=== PATIENT | female | born 1980 | race Caucasian/White ===

== ENCOUNTER 2017-07-16 11:21 | Emergency (ER) | payer BC ==
[2017-07-16] MEDS ORDERED: Ondansetron ODT TAB* 4 MG SL ONE (13:29)
[2017-07-16 13:37] LABS: ABS Basophils 0.1 10^3/ul (0-0.2); ABS Eosinophils 0.1 10^3/ul (0-0.6); ABS Lymphocytes 2.4 10^3/ul (1.0-4.8); ABS Monocytes 0.6 10^3/ul (0-0.8); ABS Neutrophils 5.3 10^3/ul (1.5-7.7); ABS Nucleated RBC 0 10^3/ul; Eosinophil % 1.1 % (0-6); Hematocrit 39 % (35-47); Hemoglobin 13.1 g/dl (12.0-16.0); Mean Corpuscular HGB Conc 34 g/dl (31-36); Mean Corpuscular Hemoglobin 30 pg (27-31); Mean Corpuscular Volume 87 fL (80-97); Mean Platelet Volume 7.3 um3 (7.4-10.4); Nucleated Red Blood Cells % 0.1; Platelet Count 316 10^3/ul (150-450); Red Blood Count 4.43 10^6/ul (4.0-5.4); Red Cell Distribution Width 14 % (10.5-15); White Blood Count 8.4 10^3/ul (3.5-10.8)
[2017-07-16 13:51] LABS: EGFR Non-African American 106.9 (>60)
[2017-07-16 15:03] VITALS: BP 121/79
--- NOTE | 2017-07-17 06:40 | ED ---
Throat Pain/Nasal Congestion - HPI Summary HPI Summary: Patient is a 36-year-old female presenting to the ED from [facility]. Recent states 2 days ago she felt pain to the occipital scalp which has now radiated anteriorly up over the ear and just posterior to the ear without effecting the jaw or cheek. She also endorses a warmth to the pinna of the ear without warmth to the mastoid. However, currently the majority of her pain is over the mastoid bone. She is concerned for a vestibular neuritis and hearing loss. She is not experiencing any hearing loss at this time. Denies any drainage from the ear. Immunizations are up today, however she has had chickenpox as a child. Denies any vesicles, lesions, rash or evidence of cellulitis. Denies any fevers, sweats, chills. She endorses feeling ill last week but this has since resolved. She does endorse a history of last year with bilateral ear infections. - History of Current Complaint Chief Complaint: EDGeneral Time Seen by Provider: 07/16/17 13:08 Hx Obtained From: Patient Onset/Duration: Sudden Onset Severity: Moderate Associated Signs And Symptoms: Positive: Negative - Epiglottits Risk Factors Epiglottis Risk Factors: Negative - Allergies/Home Medications Allergies/Adverse Reactions: Allergies Allergy/AdvReac Type Severity Reaction Status Date / Time No Known Allergies Allergy Verified 07/16/17 11:40 Home Medications: Home Medications Vit No.129/Iron/Folic [ One Daily] 1 tab PO DAILY 07/16/17 [ History Confirmed 07/16/17] PMH/Surg Hx/FS Hx/Imm Hx Previously Healthy: Yes Psychiatric History: Reports: Hx Depression Denies: Hx Anxiety, Hx Attention Deficit Hyperactivity Disorder, Hx Community Mental Health Tx, Hx Bipolar Disorder, Hx Suicide Attempt, Other Psychiatric Issues/Disorders - Surgical History Surgery Procedure, Year, and Place: PARATHYROID TUMOR REMOVAL - Immunization History Date of Tetanus Vaccine: unknown Hx Pertussis Vaccination: No Immunizations Up to Date: Unable to Obtain/Confirm Infectious Disease History: No Infectious Disease History: Denies: Traveled Outside the [place] in Last 30 Days - Social History Occupation: Employed Full-time Lives: With Family Alcohol Use: Occasionally Hx Substance Use: No Substance Use Type: Reports: None Hx Tobacco Use: No Smoking Status (MU): Never Smoked Tobacco Review of Systems Constitutional: Negative Negative: Fever, Chills, Fatigue Negative: Photophobia, Blurred Vision, Diplopia Positive: Other - pain to the mastoid area (L). Negative: Dental Pain, Sore Throat, Ear Ache, Nasal Discharge Negative: Palpitations, Chest Pain Genitourinary: Negative Positive: no symptoms reported, see HPI Negative: Arthralgia, Myalgia Neurological: Negative Psychological: Normal All Other Systems Reviewed And Are Negative: Yes Physical Exam Triage Information Reviewed: Yes Vital Signs On Initial Exam: Initial Vitals Temp Pulse Resp BP Pulse Ox 98.2 F 80 20 125/80 100 07/16/17 11:30 07/16/17 11:30 07/16/17 11:30 07/16/17 11:30 07/16/17 11:30 Vital Signs Reviewed: Yes Appearance: Positive: Well-Appearing, No Pain Distress, Well-Nourished Skin: Positive: Warm, Skin Color Reflects Adequate Perfusion Head/Face: Positive: Normal Head/Face Inspection, Scalp - scalp tenderness. Negative: TMJ Tenderness, Cephalohematoma Neck: Positive: Supple, No Lymphadenopathy, Enlarged Nodes @ - Left sided post auricular. No other LAD noted on exam Respiratory/Lung Sounds: Positive: Clear to Auscultation, Breath Sounds Present Cardiovascular: Positive: RRR, Pulses are Symmetrical in both Upper and Lower Extremities Neurological: Positive: Normal, Sensory/Motor Intact Psychiatric: Positive: Normal, Affect/Mood Appropriate AVPU Assessment: Alert Diagnostics - Vital Signs Vital Signs Temp Pulse Resp BP Pulse Ox 07/16/17 15:03 98.2 F 78 17 121/79 100 07/16/17 11:30 98.2 F 80 20 125/80 100 - Laboratory Lab Results: Lab Results 07/16/17 07/16/17 Range/Units 13:25 13:25 WBC 8.4 (3.5-10.8) 10^3/ul RBC 4.43 (4.0-5.4) 10^6/ul Hgb 13.1 (12.0-16.0) g/dl Hct 39 (35-47) % MCV 87 (80-97) fL MCH 30 (27-31) pg MCHC 34 (31-36) g/dl RDW 14 (10.5-15) % Plt Count 316 (150-450) 10^3/ul MPV 7.3 L (7.4-10.4) um3 Neut % (Auto) 63.1 (38-83) % Lymph % (Auto) 28.0 (25-47) % [place] % (Auto) 6.9 (0-7) % Eos % (Auto) 1.1 (0-6) % Baso % (Auto) 0.9 (0-2) % Absolute Neuts (auto) 5.3 (1.5-7.7) 10^3/ul Absolute Lymphs (auto) 2.4 (1.0-4.8) 10^3/ul Absolute Monos (auto) 0.6 (0-0.8) 10^3/ul Absolute Eos (auto) 0.1 (0-0.6) 10^3/ul Absolute Basos (auto) 0.1 (0-0.2) 10^3/ul Absolute Nucleated RBC 0 10^3/ul Nucleated RBC % 0.1 ESR 29 H (0-14) mm/Hr Sodium 138 L (139-145) mmol/L Potassium 4.0 (3.5-5.0) mmol/L Chloride 104 (101-111) mmol/L Carbon Dioxide 26 (22-32) mmol/L Anion Gap 8 (2-11) mmol/L BUN 8 (6-24) mg/dL Creatinine 0.63 (0.51-0.95) mg/dL Est GFR ( Amer) 137.5 (>60) Est GFR (Non-Af Amer) 106.9 (>60) BUN/Creatinine Ratio 12.7 (8-20) Glucose 88 (70-100) mg/dL Calcium 8.8 (8.6-10.3) mg/dL Total Bilirubin 0.30 (0.2-1.0) mg/dL AST 11 L (13-39) U/L ALT 17 (7-52) U/L Alkaline Phosphatase 83 (34-104) U/L C-Reactive Protein 5.96 H (< 5.00) mg/L Total Protein 6.9 (6.4-8.9) g/dL Albumin 3.9 (3.2-5.2) g/dL Globulin 3.0 (2-4) g/dL Albumin/Globulin Ratio 1.3 (1-3) Result Diagrams: 07/16/17 13:25 07/16/17 13:25 Lab Statement: Any lab studies that have been ordered have been reviewed, and results considered in the medical decision making process. EENT Course/Dx - Course Course Of Treatment: Patient sent here from [address] [place] [address] urgent care with a concern for mastoiditis. On physical examination, there is postauricular tenderness without erythema or swelling. There is no fluctuance or mass. No protrusion of the auricle. Denies any systemic involvement including no fevers, sweats, chills. Denies any lethargy. TM without erythema, otorrhea, pus pocket. Cone of light visualized. Enlarged left-sided postauricular lymph nodes. No right- sided postauricular lymph nodes appreciated. Denies any known tick bite or rash , no EM rash visualized to the scalp or neck. I have also discussed with the patient I am not at this time concerned with a labyrinthitis as she denies any vertigo symptoms, vomiting, hearing loss, tinnitus and there is no nystagmus on exam. She does however endorse a mild amount of nausea and she is given Zofran on arrival. The sternocleidomastoid muscle is palpated without pain. There is no vesicular lesions, however due to the nerve pattern of pain there is a concern for early shingles. History of chickenpox. Patient is currently breast -feeding and I believe a short course of steroid will help with any nerve discomfort. Will not place on any antibiotics or antivirals at this time. She understands return precautions and I have discussed mastoiditis symptoms as well as shingles symptoms. - Diagnoses Provider Diagnoses: Nerve pain, Postauricular lymphadenopathy Discharge - Sign-Out/Discharge Documenting (check all that apply): Discharge/Admit/Transfer - Discharge Plan Condition: Stable Disposition: HOME Prescriptions: predniSONE TAB* [Deltasone TAB*] 50 mg PO DAILY #5 tab MDD 1 Patient Education Materials: Mastoiditis (ED) Referrals: Saadia Yip MD [Primary Care Provider] - Additional Instructions: I am not diagnosing you with mastoiditis, I am giving you information You do not have signs of mastoiditis on exam Prednisone once daily 5 days Prednisone is at its peak in the body at 2 hours, attempt to avoid 2 hours after ingestion of prednisone BEFORE the medication or 4-5 hours AFTER is best However, no adverse reactions were seen in studies testing prednisone with breast feeding infants. Warm compresses to the postauricular nodes If you develop any vesicles, worsening redness, warmth, swelling, drainage from the ear or fevers, return to the ED immediately - Billing Disposition and Condition Condition: STABLE Disposition: HOME
== END 2017-07-16 15:03 | disposition home or self-care (01) ==
LOC: ED 11:21
DX: M79.2 Neuralgia and neuritis, unspecified (principal); R59.0 Localized enlarged lymph nodes; R11.0 Nausea; Z86.19 Personal history of other infectious and parasitic diseases
CPT/HCPCS: 36415; 80053; 85025; 85652; 86140; 99283; A9270-GY

== ENCOUNTER 2018-06-11 17:46 | Emergency (ER) | payer BC ==
[2018-06-11 19:22] LABS: ABS Basophils 0.1 10^3/ul (0-0.2); ABS Eosinophils 0.2 10^3/ul (0-0.6); ABS Lymphocytes 3.2 10^3/ul (1.0-4.8); ABS Monocytes 0.8 10^3/ul (0-0.8); ABS Neutrophils 8.2 10^3/ul (1.5-7.7); ABS Nucleated RBC 0 10^3/ul; Eosinophil % 1.6 %; Hematocrit 38 % (33-41); Hemoglobin 12.7 g/dL (12.0-16.0); Lymphocyte % 25.8 %; Mean Corpuscular HGB Conc 33 g/dL (31-36); Mean Corpuscular Hemoglobin 29 pg (27-31); Mean Corpuscular Volume 88 fL (80-97); Mean Platelet Volume 7.4 fL (7.4-10.4); Nucleated Red Blood Cells % 0; Platelet Count 302 10^3/uL (150-450); Red Blood Count 4.33 10^6 /uL (3.70-4.87); Red Cell Distribution Width 14 % (10.5-15); White Blood Count 12.6 10^3/uL (3.5-10.8)
[2018-06-11 19:43] LABS: ALT 17 U/L (7-52); AST 13 U/L (13-39); Albumin 4.3 g/dL (3.2-5.2); Albumin/Globulin Ratio 1.4 (1-3); Alkaline Phosphatase 83 U/L (34-104); Anion Gap 6 mmol/L (2-11); BUN/Creatinine Ratio 15.2 (8-20); Blood Urea Nitrogen 10 mg/dL (6-24); C Reactive Protein 11.21 mg/L (<8.01); CO2 Carbon Dioxide 27 mmol/L (22-32); Calcium 9.4 mg/dL (8.6-10.3); Chloride 106 mmol/L (101-111); EGFR African American 121.9 (>60); EGFR Non-African American 100.8 (>60); Glucose 98 mg/dL (70-100); Potassium 4.3 mmol/L (3.5-5.0); Sodium 139 mmol/L (135-145); Total Protein 7.3 g/dL (6.4-8.9)
[2018-06-11 19:49] LABS: HCG Pregnancy < 0.60 mIU/mL
[2018-06-11] MEDS ORDERED: NS 0.9% 1000 ML** 1,000 ML IV ONE (20:02)
[2018-06-11] MEDS ORDERED: Morphine 10 MG/ML VIAL (1 ml) IV ONE (20:02)
[2018-06-11] MEDS ORDERED: Ondansetron INJ* 2 MG/ML VIAL IV ONE (20:02)
--- NOTE | 2018-06-11 20:02 | ED ---
Abdominal Pain/Female - HPI Summary HPI Summary: Patient complains of pelvic pain involving anterior pelvis, bilateral hips, bilateral lower back starting in March 2018. She states symptoms are intermittent, increase with menstrual cycle and decreased when menstrual cycle is over. States this time patient is worse and started sooner. Denies fever, cough, sore throat, CP, SOB, N/V/D, change in urine, change in BM, vaginal bleeding, vaginal discharge. States PSYCH RN cannot get her an appointment until next week. Chronic intermittent pain with intercourse and chronic vaginal itching which has been evaluated by PSYCH RN with no formal diagnosis. Patient has history of kidney stones. - History of Current Complaint Chief Complaint: EDAbdPain Stated Complaint: PELVIC PAIN, SENT FROM [facility] PER PT Time Seen by Provider: 06/11/18 18:46 Hx Obtained From: Patient Onset/Duration: Gradual Onset, Lasting Weeks Timing: Weeks Severity Initially: Moderate Severity Currently: Severe Pain Intensity: 8 Pain Scale Used: 0-10 Numeric Location: Diffuse Radiates: Yes Radiates to: Back, Flank, LLQ, RLQ Character: Sharp, Cramping Aggravating Factor(s): Movement Alleviating Factor(s): Position Associated Signs and Symptoms: Positive: Back Pain Allergies/Adverse Reactions: Allergies Allergy/AdvReac Type Severity Reaction Status Date / Time No Known Allergies Allergy Verified 06/11/18 17:50 Home Medications: Home Medications Sertraline* [Zoloft*] 25 mg PO DAILY 06/11/18 [History Confirmed 06/11/18] PMH/Surg Hx/FS Hx/Imm Hx Endocrine/Hematology History: Denies: Hx Anticoagulant Therapy Cardiovascular History: Denies: Hx Pacemaker/ICD History: Denies: Hx Dialysis Sensory History: Denies: Hx Eye Prosthesis Opthamlomology History: Denies: Hx Legally Blind EENT History: Denies: Hx Deafness Neurological History: Denies: Hx Dementia Psychiatric History: Reports: Hx Depression Denies: Hx Anxiety, Hx Attention Deficit Hyperactivity Disorder, Hx Community Mental Health Tx, Hx Bipolar Disorder, Hx Suicide Attempt, Other Psychiatric Issues/Disorders - Surgical History Surgery Procedure, Year, and Place: PARATHYROID TUMOR REMOVAL - Immunization History Date of Tetanus Vaccine: unknown Infectious Disease History: No Infectious Disease History: Denies: Traveled Outside the [place] in Last 30 Days - Social History Alcohol Use: Occasionally Hx Substance Use: No Substance Use Type: Reports: None Hx Tobacco Use: No Smoking Status (MU): Never Smoked Tobacco Review of Systems Constitutional: Negative Eyes: Negative ENT: Negative Cardiovascular: Negative Respiratory: Negative Positive: Abdominal Pain Genitourinary: Negative Musculoskeletal: Negative Skin: Negative Neurological: Negative Psychological: Normal All Other Systems Reviewed And Are Negative: Yes Physical Exam - Summary Physical Exam Summary: Lower abdomen tender to palpation bilaterally and suprapubically. Upper abdomen exam unremarkable. No indication of trauma to bilateral hips. No pain with palpation of lower back. No CVA tenderness bilaterally. Patient able to flex and extend bilateral hips with minimal indication of pain. Lung sounds clear to auscultation bilaterally. RRR. Triage Information Reviewed: Yes Vital Signs On Initial Exam: Initial Vitals Temp Pulse Resp BP Pulse Ox 98.0 F 86 20 139/81 98 06/11/18 17:49 06/11/18 17:49 06/11/18 17:49 06/11/18 17:49 06/11/18 17:49 Vital Signs Reviewed: Yes Appearance: Positive: Well-Appearing Skin: Positive: Warm Head/Face: Positive: Normal Head/Face Inspection Eyes: Positive: Normal Neck: Positive: Supple Respiratory/Lung Sounds: Positive: Clear to Auscultation Cardiovascular: Positive: Normal Abdomen Description: Positive: Other: Musculoskeletal: Positive: Normal Neurological: Positive: Normal Psychiatric: Positive: Normal AVPU Assessment: Alert - Ervin Coma Scale Best Eye Response: 4 - Spontaneous Best Motor Response: 6 - Obeys Commands Best Verbal Response: 5 - Oriented Coma Scale Total: 15 Diagnostics - Vital Signs Vital Signs Temp Pulse Resp BP Pulse Ox 06/11/18 17:49 98.0 F 86 20 139/81 98 - Laboratory Lab Results: Lab Results 06/11/18 06/11/18 06/11/18 Range/Units 19:15 19:15 19:15 WBC 12.6 H (3.5-10.8) 10^3/uL RBC 4.33 (3.70-4.87) 10^6 /uL Hgb 12.7 (12.0-16.0) g/dL Hct 38 (33-41) % MCV 88 (80-97) fL MCH 29 (27-31) pg MCHC 33 (31-36) g/dL RDW 14 (10.5-15) % Plt Count 302 (150-450) 10^3/uL MPV 7.4 (7.4-10.4) fL Neut % (Auto) 65.1 % Lymph % (Auto) 25.8 % [place] % (Auto) 6.7 % Eos % (Auto) 1.6 % Baso % (Auto) 0.8 % Absolute Neuts (auto) 8.2 H (1.5-7.7) 10^3/ul Absolute Lymphs (auto) 3.2 (1.0-4.8) 10^3/ul Absolute Monos (auto) 0.8 (0-0.8) 10^3/ul Absolute Eos (auto) 0.2 (0-0.6) 10^3/ul Absolute Basos (auto) 0.1 (0-0.2) 10^3/ul Absolute Nucleated RBC 0 10^3/ul Nucleated RBC % 0 Sodium 139 (135-145) mmol/L Potassium 4.3 (3.5-5.0) mmol/L Chloride 106 (101-111) mmol/L Carbon Dioxide 27 (22-32) mmol/L Anion Gap 6 (2-11) mmol/L BUN 10 (6-24) mg/dL Creatinine 0.66 (0.51-0.95) mg/dL Est GFR ( Amer) 121.9 (>60) Est GFR (Non-Af Amer) 100.8 (>60) BUN/Creatinine Ratio 15.2 (8-20) Glucose 98 (70-100) mg/dL Lactic Acid 0.9 (0.5-2.0) mmol/L Calcium 9.4 (8.6-10.3) mg/dL Total Bilirubin 0.30 (0.2-1.0) mg/dL AST 13 (13-39) U/L ALT 17 (7-52) U/L Alkaline Phosphatase 83 (34-104) U/L C-Reactive Protein 11.21 H (<8.01) mg/L Total Protein 7.3 (6.4-8.9) g/dL Albumin 4.3 (3.2-5.2) g/dL Globulin 3.0 (2-4) g/dL Albumin/Globulin Ratio 1.4 (1-3) Lipase 29 (11.0-82.0) U/L Beta HCG, Quant < 0.60 mIU/mL Result Diagrams: 06/11/18 19:15 06/11/18 19:15 Lab Statement: Any lab studies that have been ordered have been reviewed, and results considered in the medical decision making process. Abdominal Pain Fem Course/Dx - Course Course Of Treatment: Patient complains of pelvic pain involving anterior pelvis , bilateral hips, bilateral lower back starting in March 2018. She states symptoms are intermittent, increase with menstrual cycle and decreased when menstrual cycle is over. States this time patient is worse and started sooner. Denies fever, cough, sore throat, CP, SOB, N/V/D, change in urine, change in BM, vaginal bleeding, vaginal discharge. States PSYCH RN cannot get her an appointment until next week. Chronic intermittent pain with intercourse and chronic vaginal itching which has been evaluated by PSYCH RN with no formal diagnosis. Patient has history of kidney stones. Physical exam:Lower abdomen tender to palpation bilaterally and suprapubically. Upper abdomen exam unremarkable. No indication of trauma to bilateral hips. No pain with palpation of lower back. No CVA tenderness bilaterally. Patient able to flex and extend bilateral hips with minimal indication of pain. Lung sounds clear to auscultation bilaterally. RRR. Vital signs within normal limits. WBC 12.6. CRP 11.21. Labs otherwise unremarkable. Urine negative. Pelvic/ transvaginal ultrasound unremarkable. CT abdomen and pelvis with contrast remarkable only for right ovarian cyst. Patient deferred pelvic exam at this time, has appointment with PSYCH RN next week, advised to take ibuprofen and Tylenol until then and follow-up appointment. Patient understands and approved the plan. - Diagnoses Provider Diagnoses: Ovarian cyst Discharge - Sign-Out/Discharge Documenting (check all that apply): Patient Departure Patient Received Moderate/Deep Sedation with Procedure: No - Discharge Plan Condition: Stable Disposition: HOME Prescriptions: Oxycodone HCl 5 mg PO Q8H PRN 2 Days #6 tablet MDD 3 tabs PRN Reason: Pain Patient Education Materials: Ovarian Cyst (ED) Referrals: Saadia Yip MD [Primary Care Provider] - Additional Instructions: Follow-up with your PSYCH RN at your scheduled appointment next week for further evaluation. You may alternate ibuprofen 600 mg with Tylenol 650 mg every 3 hours for pain. Return to the ED for any new or worsening symptoms. - Billing Disposition and Condition Condition: STABLE Disposition: Home
[2018-06-11] MEDS ORDERED: Iohexol 300* (CONTRAST) 10 ML SDV IV ONE (20:12)
[2018-06-11 20:39] LABS: Urine Appearance Clear; Urine Bacteria 1+ (Absent); Urine Bilirubin Negative (Negative); Urine Blood Negative (Negative); Urine Color Straw; Urine Glucose Negative (Negative); Urine Ketones Negative (Negative); Urine Nitrite Negative (Negative); Urine Protein Negative (Negative); Urine Red Blood Cell Trace(0-2/hpf) (Absent); Urine Specific Gravity 1.005 (1.010-1.030); Urine Squamous Epithelial Cell Present (Absent); Urine Urobilinogen Negative (Negative); Urine White Blood Cell Trace(0-5/hpf) (Absent)
[2018-06-11] MEDS ORDERED: diPHENhydraMINE IV* 50 MG/ML 1 ml VIAL (BENADRYL) IV ONE (20:45)
[2018-06-11] MEDS ORDERED: oxyCODONE TAB* 5 MG TAB PO ONE (21:11)
[2018-06-11] MEDS ORDERED: Ibuprofen TAB* 600 MG PO ONE (21:11)
[2018-06-11 21:47] VITALS: BP 121/86
--- NOTE | 2018-06-13 16:15 | PN ---
Progress Note - Progress Note Date of Service: 06/11/18 Note: Pt. seen in ED 4.29 for abd. pain. Urine culture growing 75-100k staph. aureus. Pt. not on antibx. Attempted to call pt. today at 1605 without answer. Will treat with keflex based on culture. Will send letter to return call. <Matthew Alves - Last Filed: 06/13/18 16:09> Attestation Statement Provider Attestation: I was available for consult. This patient was seen by the [facility]. The patient was not presented to, seen by, or examined by me. -Derick <Talia Ceron - Last Filed: 06/14/18 15:26>
== END 2018-06-11 21:46 | disposition home or self-care (01) ==
LOC: ED 17:46
DX: N83.201 Unspecified ovarian cyst, right side (principal); N39.0 Urinary tract infection, site not specified; B95.61 Methicillin susceptible Staphylococcus aureus infection as the cause of diseases classified elsewhere; Z87.442 Personal history of urinary calculi; F32.9 Major depressive disorder, single episode, unspecified
CPT/HCPCS: 36415; 74177; 76830; 76856; 80053; 81003; 81015; 83605; 83690; 84702; 85025; 86140; 87077; 87086; 87186; 96361; 96374; 96375; 99282; A9270-GY; J1200; J2270; J2405; Q9967

== ENCOUNTER 2019-04-17 15:41 | Emergency (ER) | payer BC ==
--- OUTSIDE RECORDS SUMMARY | 2019-04-17 16:02 | XMS REPORT | Summary of Care ---
:1980 Author Organization [facility] Address [address] [facility] [address] [place] [address] Care Team Providers Name Role Phone Casa Timmons Primary Care Provider Reason for Visit Reason Comments Anxiety Discuss labs 2 month follow up. Derm Problem Right arm lumps under her skin wants checked. Encounter Details Date Type Department Care Team Description 02/21/2019 Office Visit [facility] Saadia Yip MD Severe menstrual cramps (Primary Dx); Medicine [address] Depression, unspecified depression type; [address] [place] [address] B12 deficiency; [place] [address] Lipid disorder; [phone] Vitamin D deficiency; Lipoma, unspecified site Allergies No Known Allergiesdocumented as of this encounter (statuses as of 02/21/2019) Medications Medication Sig Dispensed Refills Start Date End Date Status acetaminophen Take 500 mg 0 Active (TYLENOL) 500 MG by mouth Oral Tab EVERY FOUR HOURS NEEDED for Pain. sertraline (ZOLOFT) Take 50 mg 0 Active 50 MG Oral Tab by mouth DAILY. 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 ondansetron (ZOFRAN Take 1 Tab 30 Tab 1 12/17/2018 Active ODT) 4 MG Oral by mouth TABLET EVERY SIX DISPERSIBLEIndicati HOURS ons: Severe NEEDED menstrual cramps (nausea -). naproxen sodium Take 1 Tab 60 Tab 5 02/21/2019 Active (ANAPROX DS) 550 MG by mouth TWO Oral TIMES DAILY TabIndications: WITH MEALS. Severe menstrual cramps ALPRAZolam (XANAX) Take 1 Tab 30 Tab 0 02/21/2019 Active 0.5 MG Oral by mouth TabIndications: EVERY SIX Severe menstrual HOURS cramps NEEDED (anxiety). Max Daily Amount: 2 mg. HYDROcodone-acetami Take 1 Tab 45 Tab 0 02/21/2019 Active nophen (NORCO) by mouth 5-325 MG Oral EVERY SIX TabIndications: HOURS Severe menstrual NEEDED cramps (menstrual cramps). Max Daily Amount: 4 Tabs. ibuprofen (MOTRIN) Take 600 mg 0 Discontinued 200 MG Oral Tab by mouth 0 EVERY FOUR HOURS NEEDED for Pain. naproxen sodium Take 1 Tab 60 Tab 0 12/17/2018 Discontinued (ANAPROX DS) 550 MG by mouth TWO 0 (Reorder) Oral Tab TIMES DAILY WITH MEALS. HYDROcodone-acetami Take 1 Tab 30 Tab 0 12/17/2018 Discontinued nophen (NORCO) by mouth 0 (Reorder) 5-325 MG Oral Tab EVERY SIX HOURS NEEDED (menstrual cramps). Max Daily Amount: 4 Tabs. ALPRAZolam (XANAX) Take 1 Tab 20 Tab 0 12/17/2018 Discontinued 0.5 MG Oral by mouth 0 (Reorder) TabIndications: EVERY SIX Severe menstrual HOURS cramps NEEDED (anxiety). Max Daily Amount: 2 mg. documented as of this encounter (statuses as of 02/21/2019) Active Problems Problem Noted Date Depression with anxiety 07/03/2014 Panic disorder 06/19/2014 Inflammatory osteoarthritis 09/26/2013 Fibromyalgia syndrome 04/18/2013 Overview: S/p chiropractor 2012 Blood work negative Parathyroid adenoma 03/28/2013 Overview: Parathyroidectomy [facility] 05/2012: FINAL DIAGNOSIS: RESECTION OF RIGHT SUPERIOR PARATHYROID GLAND: - PARATHYROID ADENOMA, 7 GRAMS. History of ADHD 03/28/2013 Overview: concerta use 2 years 2006- Urolithiasis 05/10/2012 Fatty liver 05/10/2012 BMI 32.0-32.9,adult 05/10/2012 Overview: This patient's BMI has been calculated and is above average, and BMI management plan is completed. General patient education discussion including: obesity- related excess mortality documented as of this encounter (statuses as of 02/21/2019) Resolved Problems Problem Noted Date Resolved Date Primary hyperparathyroidism 05/10/2012 06/13/2012 documented as of this encounter (statuses as of 02/21/2019) Immunizations Name Administration Dates Next Due Influenza (IM) W/Pres 01/07/2014 TDAP Vaccine 01/07/2014 documented as of this encounter Social History Tobacco Use Types Packs/Day Years Used Date Never Smoker Smokeless Tobacco: Never Used Alcohol Use Drinks/Week oz/Week Comments Yes 2 Glasses of wine 3.0 once a week 1 Cans of beer Sex Assigned at Date Recorded Not on file Job Start Date Occupation Industry Not on file Not on file Not on file Travel History Travel Start Travel End No recent travel history available. documented as of this encounter Last Filed Vital Signs Vital Sign Reading Time Taken Comments Blood Pressure 128/68 02/21/2019 9:12 AM EST Pulse 74 02/21/2019 9:12 AM EST Temperature - - Respiratory Rate - - Oxygen Saturation 98% 02/21/2019 9:12 AM EST Inhaled Oxygen Concentration - - Weight 90.3 kg (199 lb) 02/21/2019 9:12 AM EST Height 160 cm (5' 3") 02/21/2019 9:12 AM EST Body Mass Index 35.25 02/21/2019 9:12 AM EST documented in this encounter Progress Notes Saadia Yip MD - 02/21/2019 9:00 AM EST NAME:Ave Londono 1980: 1980 ENC Date: 02/21/2019 CC: Chief Complaint Patient presents with Anxiety Discuss labs 2 month follow up. Derm Problem Right arm lumps under her skin wants checked. Ave Londono is a 38-y.o. female 1. Severe menstural cramps - Well addressed by present multidrug regimen 2. Following with psychologist - Dr Singh Good experience - 3/ bump on right forearm Current Outpatient Medications Medication Sig acetaminophen (TYLENOL) 500 MG Oral Tab Take 500 mg by mouth EVERY FOUR HOURS NEEDED for Pain. ALPRAZolam (XANAX) 0.5 MG Oral Tab Take 1 Tab by mouth EVERY SIX HOURS NEEDED (anxiety). Max Daily Amount: 2 mg. HYDROcodone-acetaminophen (NORCO) 5-325 MG Oral Tab Take 1 Tab by mouth EVERY SIX HOURS NEEDED (menstrual cramps). Max Daily Amount: 4 Tabs. Multiple Vitamin (MULTI-DAY PO) Take by mouth. naproxen sodium (ANAPROX DS) 550 MG Oral Tab Take 1 Tab by mouth TWO TIMES DAILY WITH MEALS. ondansetron (ZOFRAN ODT) 4 MG Oral TABLET DISPERSIBLE Take 1 Tab by mouth EVERY SIX HOURS NEEDED (nausea -). sertraline (ZOLOFT) 50 MG Oral Tab Take 50 mg by mouth DAILY. 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 Patient Active Problem List Diagnosis Date Noted Depression with anxiety 07/03/2014 Panic disorder 06/19/2014 Inflammatory osteoarthritis 09/26/2013 Fibromyalgia syndrome 04/18/2013 S/p chiropractor 2011 Blood work negative Parathyroid adenoma 03/28/2013 Parathyroidectomy [facility] 05/2012: FINAL DIAGNOSIS: RESECTION OF RIGHT SUPERIOR PARATHYROID GLAND: - PARATHYROID ADENOMA, 7 GRAMS. History of ADHD 03/28/2013 concerta use 2 years 2006-8 Urolithiasis 05/10/2012 Fatty liver 05/10/2012 BMI 32.0-32.9,adult 05/10/2012 This patient's BMI has been calculated and is above average, and BMI management plan is completed. General patient education discussion including: obesity-related excess mortality Family History Problem Relation Age of Onset Fibromyalgia Mother Hypertension Father Hypertension Paternal Grandmother Cancer Maternal Grandfather prostate, skin Cancer Other ? pancreatic or stomach No cardiopulmonary symptoms No upper or lower GI complaints No urinary tract symptoms. No bruising/ bleeding. No neurological complaints . No insomnia.+ . Social History Tobacco Use Smoking status: Never Smoker Smokeless tobacco: Never Used Substance Use Topics Alcohol use: Yes Alcohol/week: 3.0 standard drinks Types: 2 Glasses of wine, 1 Cans of beer per week Comment: once a week Drug use: No OBJECTIVE: BP 128/68 | Pulse 74 | Ht 5' 3" (1.6 m) | Wt 199 lb (90.3 kg) | SpO2 98% | BMI 35.25 kg/m . Fatty lipoma - like - Larger than pea- smaller than grape - below elbow- A/P ICD-9-CM ICD-10-CM 1. Severe menstrual cramps 625.3 N94.6 naproxen sodium (ANAPROX DS) 550 MG Oral Tab ALPRAZolam (XANAX) 0.5 MG Oral Tab HYDROcodone-acetaminophen (NORCO) 5-325 MG Oral Tab 2. Depression, unspecified depression type 311 F32.9 CBC WITH DIFFERENTIAL COMPREHENSIVE METABOLIC PANEL THYROID STIMULATING HORMONE 3. B12 deficiency 266.2 E53.8 VITAMIN B12 / FOLATE 4. Lipid disorder 272.9 E78.9 LIPID PROFILE 5. Vitamin D deficiency 268.9 E55.9 VITAMIN D 25 HYDROXY ([place]ILTON) 6. Lipoma, unspecified site 214.9 D17.9 There are no Patient Instructions on file for this visit. AUTHOR: Saadia Yip MD 09:50 02/21/2019 documented in this encounter Plan of Treatment Date Type Specialty Care Team Description 02/26/2019 Office Visit Physical Therapy Yolanda Watson, PT [address] [place] [address] [phone] 03/05/2019 Office Visit Physical Therapy Yolanda Watson, PT [address] [place] [address] [phone] 03/12/2019 Office Visit Physical Therapy Yolanda Watson, PT [address] [place] [address] [phone] Name Type Priority Associated Diagnoses Order Schedule CBC WITH DIFFERENTIAL Lab Routine Depression, unspecified Expected: 2019 depression type (Approximate), Expires: 08/19/2019 COMPREHENSIVE METABOLIC Lab Routine Depression, unspecified Expected: 02/20 PANEL depression type (Approximate), Expires: 08/19/2019 THYROID STIMULATING Lab Routine Depression, unspecified Expected: 2019 HORMONE depression type (Approximate), Expires: 08/19/2019 LIPID PROFILE Lab Routine Lipid disorder Expected: 02/20/2019 (Approximate), Expires: 08/19/2019 VITAMIN B12 / FOLATE Lab Routine B12 deficiency Expected: 02/20/2019 (Approximate), Expires: 02/21/2020 VITAMIN D 25 HYDROXY Lab Routine Vitamin D deficiency Expected: 02/21/2019 (YOBANI) (Approximate), Expires: 02/22/2020 Health Maintenance Due Date Last Done Comments DEPRESSION SCREENING 12/18/2019 12/17/2018 DTaP/Tdap/Td Vaccines (2 - Tdap) 01/08/2024 01/07/2014 HEPATITIS A IMMUNIZATION SERIES Aged Out No longer eligible based on patient's age to complete this topic HPV IMMUNIZATION SERIES Aged Out No longer eligible based on patient's age to complete this topic MENINGOCOCCAL VACCINE IMM Aged Out No longer eligible based on patient's age to complete this topic PNEUMOCOCCAL 0-64 YRS Aged Out No longer eligible based on patient's age to complete this topic documented as of this encounter Goals Goal Patient Goal Associated Recent Patient-Stated? Author Type Problems Progress Depression Depression No chicho Yip (PHQ-9) MD Saadia total score < 5 Note: This is an individualized treatment (depression) goal for Ave Londono: Displayed above is your goal for a depression screening (PHQ-9) score that would indicate good control of your depression. Keep a regular sleep schedule Lifestyle No Saadia Yip MD Note: This is an individualized lifestyle goal for Ave Londono: Please maintain a regular sleep schedule. This may help with some symptoms of depression. Take all prescribed medications as directed Self-management No Saadia Yip MD Note: This is an individualized self-management goal for Ave Londono: Please take all prescribed medications as directed. 1. Do not skip doses. If you cannot afford your medications, talk with your doctor. 2. Use a pill reminder system such as a pill box if needed. Your pharmacist can help you with this. 3. Contact your Pharmacy 5 days before your medication runs out. If you cannot take your medications for any reasons, talk with your doctor. 4. Please bring all of your medication bottles and inhalers (or a list of all your medications/inhalers) with you to every visit. Potential barriers to meeting all of your care plan goals will continue to be addressed on an ongoing basis. documented as of this encounter Results Not on filedocumented in this encounter Visit Diagnoses Diagnosis Severe menstrual cramps Depression, unspecified depression type B12 deficiency Other B-complex deficiencies Lipid disorder Unspecified disorder of lipoid metabolism Vitamin D deficiency Unspecified vitamin D deficiency Lipoma, unspecified site documented in this encounter Insurance Payer Benefit Plan / Subscriber ID Effective Dates Phone Address Type Group [facility] xxxxxxxxx 2011-[place] Blue t Cross/Blue Shield Guarantor Name Account Type Relation to Date of Phone Billing Patient Address Ave Londono Personal/Family [address] (Home) [place], [place] [phone] (Work) documented as of this encounter
--- OUTSIDE RECORDS SUMMARY | 2019-04-17 16:02 | XMS REPORT | Summary of Care ---
:1980 Author Organization [facility] Address [address] [place] [address] Care Team Providers Name Role Phone Casa Timmons Primary Care Provider Reason for Visit Reason Comments Ankle Pain Encounter Details Date Type Department Care Team Description 02/19/2019 Office Visit [facility] - oYlanda Watson, PT Acute right ankle [facility] [address] pain (Primary Dx) Therapy [address] [place] [address] [address] [phone] [place] [address] [phone] Allergies No Known Allergiesdocumented as of this encounter (statuses as of 02/19/2019) Medications Medication Sig Dispensed Refills Start Date End Date Status ibuprofen (MOTRIN) 200 Take 600 mg by 0 Active MG Oral Tab mouth EVERY FOUR HOURS NEEDED for Pain. acetaminophen (TYLENOL) Take 500 mg by 0 Active 500 MG Oral Tab mouth EVERY FOUR HOURS NEEDED for Pain. sertraline (ZOLOFT) 50 Take 50 mg by 0 Active MG Oral Tab mouth DAILY. 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 0 Active (MULTI-DAY PO) naproxen sodium (ANAPROX Take 1 Tab by 60 Tab 0 12/17/2018 Active DS) 550 MG Oral Tab mouth TWO TIMES DAILY WITH MEALS. HYDROcodone-acetaminophe Take 1 Tab by 30 Tab 0 12/17/2018 Active n (NORCO) 5-325 MG Oral mouth EVERY SIX Tab HOURS NEEDED (menstrual cramps). Max Daily Amount: 4 Tabs. ondansetron (ZOFRAN ODT) Take 1 Tab by 30 Tab 1 12/17/2018 Active 4 MG Oral TABLET mouth EVERY SIX DISPERSIBLEIndications: HOURS NEEDED Severe menstrual cramps (nausea -). ALPRAZolam (XANAX) 0.5 Take 1 Tab by 20 Tab 0 12/17/2018 Active MG Oral TabIndications: mouth EVERY SIX Severe menstrual cramps HOURS NEEDED (anxiety). Max Daily Amount: 2 mg. documented as of this encounter (statuses as of 02/19/2019) Active Problems Problem Noted Date Depression with anxiety 07/03/2014 Panic disorder 06/19/2014 Inflammatory osteoarthritis 09/26/2013 Fibromyalgia syndrome 04/18/2013 Overview: S/p chiropractor 2011 Blood work negative Parathyroid adenoma 03/28/2013 Overview: [facility]ro[facility] 05/2012: FINAL DIAGNOSIS: RESECTION OF RIGHT SUPERIOR [...] as of this encounter (statuses as of 02/19/2019) Resolved Problems Problem Noted Date Resolved Date Primary hyperparathyroidism 05/10/2012 06/13/2012 documented as of this encounter (statuses as of 02/19/2019) Immunizations Name Administration Dates Next Due Influenza [...] of this encounter Last Filed Vital Signs Not on filedocumented in this encounter Progress Notes Yolanda Watson, PT - 02/19/2019 9:30 AM EST [facility] Treatment Note Outpatient Physical Therapy [facility] PHYSICAL THERAPY [address] [place] [id number] Treatment Number: 6 Referring Physician: Saadia Yip Primary Diagnosis: ICD-9-CM ICD-10-CM 1. Acute right ankle pain 719.47 M25.571 338.19 Plan of Care Expiration Date: Time In: 939 Time Out: 1006 Total Session Minutes: 26 Pain at Start of Care: 05/23 Pain at End of Care: 04/22 Subjective Comments: Pain is mostly anterior now. Notices that she sits with her foot pointed downduring the day (plantarflexed and inverted). Interventions: Therapeutic Exercises (36178) Number of Exercises?: 5 Total Minutes (all Therapeutic Exercise): 10 Exercise #1 Exercise Name: clamshells Reason for Exercise: Strengthening Location/Body Area: Hip Sets/Reps: 15 Exercise #2 Exercise Name: Gastroc stretch Reason for Exercise: Flexibility Location/Body Area: Ankle Sets/Reps: 3x30 seconds Exercise #3 Exercise Name: DF/inversion/eversion Reason for Exercise: Strengthening Location/Body Area: Ankle Sets/Reps: 10 Exercise #4 Exercise Name: piriformis stretch Reason for Exercise: Flexibility Location/Body Area: LE Sets/Reps: 3x30 seconds Manual Therapy (49735) Soft Tissue Mobilization: Manual Tissue Mobilization Soft Tissue Mobilization Details: STM to gastroc Taping: lekuptape for arch height, kT tape at peroneals Total Minutes (All Manual Therapy): 10 Ultrasound (70446) Reason for Use: soft tissue extensibility Body Area: ank Frequency: 1.0 MHz Frequency Description: Continuous Intensity: 1 Total Minutes: 6 minutes Assessment: Patient demonstrates weakness in eversion and DF as well as in lateral hip. Patient also reports ongoing difficulty in prolonged walking, stairs. Suggested getting an arch support as sheresponds well to tape. Skilled Physical Therapy services are required to address ongoing functional and objective limitations/impairments including those state above Plan for Next Visit: Continue per POC. Add in more strengthening as tolerated. Total UNTIMED Code Treatment Minutes: Total TIMED Code Treatment Minutes: 26 Total Treatment Minutes: 26 Author: Yolanda Watson, PT 02/19/2019 10:54 documented in this encounter Plan of Treatment Date Type Specialty Care Team Description 02/21/2019 Office Visit Internal Medicine Saadia Yip MD [address] [place] [address] [phone] 02/26/2019 Office Visit Physical Therapy Yolanda Watson, PT [address] [place] [address] [phone] 03/05/2019 Office Visit Physical Therapy Yolanda Watson, PT [address] [place] [address] [phone] 03/12/2019 Office Visit Physical Therapy Yolanda Watson, PT [address] [place] [address] [phone] Health Maintenance Due Date Last Done Comments INFLUENZA VACCINE (#1) 2019 01/07/2014 Postponed from 10/14/2018 (Patient refused) DEPRESSION SCREENING 12/18/2019 12/17/2018 DTaP/Tdap/Td Vaccines (2 [...] filedocumented in this encounter Visit Diagnoses Diagnosis Acute right ankle pain documented in this encounter Insurance Payer Benefit Plan / Subscriber ID Effective Dates Phone Address Type Group [facility] xxxxxxxxx 2011-[facility] Blue t Cross/Blue Shield Guarantor Name Account Type Relation to Date of Phone Billing Patient Address Ave Londono Personal/Family [address] (Home) [place], [place] [phone] (Work) documented as of this encounter
--- OUTSIDE RECORDS SUMMARY | 2019-04-17 16:02 | XMS REPORT | Summary of Care ---
:1980 Author Organization [facility] Address [address] [place] [address] Care Team Providers Name Role Phone Casa Timmons Primary Care Provider Reason for Visit Reason Comments Ankle Pain Encounter Details Date Type Department Care Team Description 03/05/2019 Office Visit [facility] - Yolanda Watson, PT Acute right ankle [place] [facility] [place] pain (Primary Dx) Therapy [address] [place] [address] [address] [phone] [phone] Allergies No Known Allergiesdocumented as of this encounter (statuses as of 03/05/2019) Medications Medication Sig Dispensed Refills Start Date End Date Status acetaminophen (TYLENOL) Take 500 mg by 0 Active 500 MG Oral Tab mouth EVERY FOUR HOURS NEEDED for Pain. sertraline (ZOLOFT) 50 Take 50 mg by 0 Active MG Oral Tab mouth DAILY. 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 0 Active (MULTI-DAY PO) ondansetron (ZOFRAN ODT) Take 1 Tab by 30 Tab 1 12/17/2018 Active 4 MG Oral TABLET mouth EVERY SIX DISPERSIBLEIndications: HOURS NEEDED Severe menstrual cramps (nausea -). naproxen sodium (ANAPROX Take 1 Tab by 60 Tab 5 02/21/2019 Active DS) 550 MG Oral mouth TWO TIMES TabIndications: Severe DAILY WITH menstrual cramps MEALS. ALPRAZolam (XANAX) 0.5 Take 1 Tab by 30 Tab 0 02/21/2019 Active MG Oral TabIndications: mouth EVERY SIX Severe menstrual cramps HOURS NEEDED (anxiety). Max Daily Amount: 2 mg. HYDROcodone-acetaminophe Take 1 Tab by 45 Tab 0 02/21/2019 Active n (NORCO) 5-325 MG Oral mouth EVERY SIX TabIndications: Severe HOURS NEEDED menstrual cramps (menstrual cramps). Max Daily Amount: 4 Tabs. documented as of this encounter (statuses as of 03/05/2019) Active Problems Problem Noted Date Depression with anxiety 07/03/2014 Panic disorder 06/19/2014 Inflammatory osteoarthritis 09/26/2013 Fibromyalgia syndrome 04/18/2013 Overview: S/p chiropractor 2011 Blood work negative Parathyroid adenoma 03/28/2013 Overview: Parathyroidectomy [facility] 05/2012: FINAL DIAGNOSIS: RESECTION OF RIGHT SUPERIOR [...] as of this encounter (statuses as of 03/05/2019) Resolved Problems Problem Noted Date Resolved Date Primary hyperparathyroidism 05/10/2012 06/13/2012 documented as of this encounter (statuses as of 03/05/2019) Immunizations Name Administration Dates Next Due Influenza [...] encounter Progress Notes Yolanda Watson, PT - 03/05/2019 9:00 AM EST [facility] Treatment Note Outpatient Physical Therapy [facility] [address] [place] [phone] Patient was 12 minutes late Treatment Number: 8 Referring Physician: Saadia Yip Primary Diagnosis: ICD-9-CM ICD-10-CM 1. Acute right ankle pain 719.47 M25.571 338.19 Plan of Care Expiration Date: Time In: 911 Time Out: 934 Total Session Minutes: 23 Pain at Start of Care: 2/10 Pain at End of Care: 2/10 Subjective Comments: Wearing sneakers decreases pain but not swelling. Getting a lot of clicking Interventions: Therapeutic Exercises (64754) Number of Exercises?: 7 Total Minutes (all Therapeutic Exercise): 13 Exercise #1 Exercise Name: clamshells Reason for Exercise: Strengthening Location/Body Area: Hip Sets/Reps: 15 Exercise #2 Exercise Name: quadruped firehydrant Reason for Exercise: Strengthening Location/Body Area: Hip Sets/Reps: 10 Exercise #4 Exercise Name: piriformis stretch Reason for Exercise: Flexibility Location/Body Area: LE Sets/Reps: 3x30 seconds Exercise #5 Exercise Name: bridge Reason for Exercise: Strengthening Location/Body Area: Lumbar Spine;Hip Sets/Reps: 10 Details: 2 bridge with april Manual Therapy (62633) Taping: lekuptape for arch height, kT tape at peroneals Total Minutes (All Manual Therapy): 5 Ultrasound (67257) Reason for Use: soft tissue extensibility Body Area: ank Frequency: 1.0 MHz Frequency Description: Continuous Intensity: 1 Total Minutes: 5 minutes Assessment: Patient demonstrates good recall of ankle strengthening but requires cueing for hip strengthening. Unable to do bridge with april due to weakness. Patient also reports ongoing difficulty in prolonged walking and standing, single leg stance. Skilled Physical Therapy services are required to address ongoing functional and objective limitations/impairments including decreased lateral hip and core strength, decreased ankle strength, impaired body mechanics. Plan for Next Visit: Continue per POC. Print more hip strengthening if tolerated. Suggested an archsupport or insert. Total UNTIMED Code Treatment Minutes: Total TIMED Code Treatment Minutes: 23 Total Treatment Minutes: 23 Author: Yolanda Watson, PT 03/05/2019 09:48 documented in this encounter Plan of Treatment Date Type Specialty Care Team Description 03/12/2019 Office Visit Physical Therapy Yolanda Waston, PT [address] [place] [address] [phone] 03/19/2019 Office Visit Physical Therapy Yolanda Watson, PT [address] [place] [address] [phone] 03/26/2019 Office Visit Physical Therapy Yolanda Watson, PT [address] [place] [address] [phone] 05/22/2019 Office [place] [address] [place] [address] [id number] Health Maintenance Due Date Last Done Comments [...] Author Type Problems Progress Depression Depression No Phi screen (PHQ-9) MD Saadia total score < 5 [...] Take all prescribed medications as directed Self-management Saadia Bauman MD Note: This is an individualized self-management [...] ID Effective Dates Phone Address Type Group [facility] xxxxxxxxx 2011-[facility] Blue t Cross/Blue Shield Guarantor Name Account Type Relation to Date of Phone Billing Patient Address Clotilde Londonoher Henao Personal/Family [address] (Home) [place], [place] [phone] (Work) documented as of this encounter
--- OUTSIDE RECORDS SUMMARY | 2019-04-17 16:02 | XMS REPORT | Summary of Care ---
:1980 Author Organization [facility] Address [address] [place] [address] Care Team Providers Name Role Phone Casa Timmons Primary Care Provider Reason for Visit Reason Comments Ankle Pain Encounter Details Date Type Department Care Team Description 03/12/2019 Office Visit [facility] - Yolanda Watson, PT Acute right ankle [place] [facility] [place] pain (Primary Dx) Therapy [address] [place] [address] [address] [phone] [phone] Allergies No Known Allergiesdocumented as of this encounter (statuses as of 03/12/2019) Medications Medication Sig Dispensed Refills Start Date End Date Status acetaminophen (TYLENOL) Take 500 mg by 0 Active 500 MG Oral Tab mouth EVERY FOUR HOURS NEEDED for Pain. sertraline (ZOLOFT) 50 Take 50 mg by 0 Active MG Oral Tab mouth DAILY. 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 0 Active [...] as of this encounter (statuses as of 03/12/2019) Active Problems Problem Noted Date Depression with anxiety 07/03/2014 Panic disorder 06/19/2014 Inflammatory osteoarthritis 09/26/2013 Fibromyalgia syndrome 04/18/2013 Overview: S/p chiropractor 2011 Blood work negative Parathyroid adenoma 03/28/2013 Overview: Parathyroidectomy [facility] 05/2012: FINAL DIAGNOSIS: RESECTION OF RIGHT [...] as of this encounter (statuses as of 03/12/2019) Resolved Problems Problem Noted Date Resolved Date Primary hyperparathyroidism 05/10/2012 06/13/2012 documented as of this encounter (statuses as of 03/12/2019) Immunizations Name Administration Dates Next Due Influenza [...] encounter Progress Notes Yolanda Watson, PT - 03/12/2019 9:00 AM EST [facility] Treatment Note Outpatient Physical Therapy Services [facility] [address] [place] [phone] Treatment Number: 9 Referring Physician: Saadia Yip Primary Diagnosis: ICD-9-CM ICD-10-CM 1. Acute right ankle pain 719.47 M25.571 338.19 Plan of Care Expiration Date: Time In: 907 Time Out: 932 Total Session Minutes: 25 Pain at Start of Care: 2 Pain at End of Care: 03/25 Subjective Comments: Has not been feeling well so has not been as active and notices the ankle feels better. Interventions: Therapeutic Exercises (11250) Number of Exercises?: 7 Total Minutes (all Therapeutic Exercise): 15 Exercise #1 Exercise Name: clamshells Reason for Exercise: Strengthening Location/Body Area: Hip Sets/Reps: 15 Resistance: blue- supine Details: single Exercise #3 Exercise Name: DF/inversion/eversion Reason for Exercise: Strengthening Location/Body Area: Ankle Sets/Reps: 10 Resistance: red Exercise #5 Exercise Name: bridge Reason for Exercise: Strengthening Location/Body Area: Lumbar Spine;Hip Sets/Reps: 10 Resistance: blue Exercise #6 Exercise Name: DF mob Reason for Exercise: Joint Mobility Location/Body Area: Ankle Sets/Reps: 8 Manual Therapy (59094) Taping: leukoptape for arch height, kT tape at peroneals Total Minutes (All Manual Therapy): 5 Ultrasound (54438) Reason for Use: soft tissue extensibility Body Area: ank Frequency: 1.0 MHz Frequency Description: Continuous Intensity: 1 Total Minutes: 5 minutes Assessment: Patient demonstrates improved tolerance to hip strengthening. Achilles, soleus and gastroc tightness appear to be limiting DF some. Patient also reports ongoing difficulty in walking, stairs, squatting. Skilled Physical Therapy services are required to address ongoing functional and objective limitations/impairments including decreased hip strength, painful ankle ROM, decreased LE flexibility. Plan for Next Visit: DF mobs again. FOTO next visit Total UNTIMED Code Treatment Minutes: Total TIMED Code Treatment Minutes: 25 Total Treatment Minutes: 25 Author: Yolanda Watson, PT 03/12/2019 09:35 documented in this encounter Plan of Treatment Date Type Specialty Care Team Description 03/19/2019 Office Visit Physical Therapy Yolanda Watson, PT [address] [place] [address] [phone] 05/22/2019 Office Visit Internal Medicine Saadia Yip MD [address] [facility] [place] [address] [phone] Health Maintenance Due Date Last Done Comments [...] ID Effective Dates Phone Address Type Group [facility] xxxxxxxxx 2011-[facility] Blue Cross/Blue Shield Guarantor Name Account Type Relation to Date of Phone Billing Patient Address [address] Personal/Family [address] (Home) [place], [place] [phone] [address] (Work) documented as of this encounter
--- OUTSIDE RECORDS SUMMARY | 2019-04-17 16:02 | XMS REPORT | Summary of Care ---
:1980 Author Organization [facility] Address [address] [place] [address] [address] Care Team Providers Name Role Phone Casa Timmons Primary Care Provider Reason for Visit Reason Comments Ankle Pain Encounter Details Date Type Department Care Team Description 02/26/2019 Office Visit [facility] - Yolanda Watson, PT Acute right ankle [facility] [address] [place] [address] pain (Primary Dx) Therapy [address] [place] [address] [address] [phone] [phone] Allergies No Known Allergiesdocumented as of this encounter (statuses as of 02/26/2019) Medications Medication Sig Dispensed Refills Start Date End Date Status acetaminophen (TYLENOL) Take 500 mg by 0 Active 500 MG Oral Tab mouth EVERY FOUR HOURS NEEDED for Pain. sertraline (ZOLOFT) 50 Take 50 mg by 0 Active MG Oral Tab mouth DAILY. 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 0 Active [...] as of this encounter (statuses as of 02/26/2019) Active Problems Problem Noted Date Depression with anxiety 07/03/2014 Panic disorder 06/19/2014 Inflammatory osteoarthritis 09/26/2013 Fibromyalgia syndrome 04/18/2013 Overview: S/p chiropractor 2011 Blood work negative Parathyroid adenoma 03/28/2013 Overview: Parathyroidectomy [facility] 05/2012: FINAL DIAGNOSIS: RESECTION OF RIGHT SUPERIOR [...] as of this encounter (statuses as of 02/26/2019) Resolved Problems Problem Noted Date Resolved Date Primary hyperparathyroidism 05/10/2012 06/13/2012 documented as of this encounter (statuses as of 02/26/2019) Immunizations Name Administration Dates Next Due Influenza [...] encounter Progress Notes Yolanda Watson, PT - 02/26/2019 9:00 AM EST [facility] Treatment Note Outpatient Physical Therapy [facility] [address] [place] [phone] Treatment Number: 7 Referring Physician: Saadia Yip Primary Diagnosis: ICD-9-CM ICD-10-CM 1. Acute right ankle pain 719.47 M25.571 338.19 Plan of Care Expiration Date: Time In: 907 Time Out: 937 Total Session Minutes: 30 Pain at Start of Care: 04/22 Pain at End of Care: 04/22 Subjective Comments: Pain at the top and outside of the ankle. Was sore for two days after the clamshells. Interventions: Therapeutic Exercises (09598) Number of Exercises?: 6 Total Minutes (all Therapeutic Exercise): 12 Exercise #1 Exercise Name: clamshells Reason for Exercise: Strengthening Location/Body Area: Hip Sets/Reps: 15 Exercise #3 Exercise Name: DF/inversion/eversion Reason for Exercise: Strengthening Location/Body Area: Ankle Sets/Reps: 10 Exercise #4 Exercise Name: piriformis stretch Reason for Exercise: Flexibility Location/Body Area: LE Sets/Reps: 3x30 seconds Manual Therapy (71856) Soft Tissue Mobilization: Manual Tissue Mobilization Soft Tissue Mobilization Details: STM to gastroc Taping: lekuptape for arch height, kT tape at peroneals Total Minutes (All Manual Therapy): 12 Ultrasound (95952) Reason for Use: soft tissue extensibility Body Area: ank Frequency: 1.0 MHz Frequency Description: Continuous Intensity: 1 Total Minutes: 6 minutes Assessment: Patient demonstrates good recall of HEP. Excessive inversion still noted when at rest and if does a calf raise. Patient also reports ongoing difficulty in prolonged walking, stairs. Skilled Physical Therapy services are required to address ongoing functional and objective limitations/impairments including decreased eversion and DF strength, impaired body mechanics and posture. . Plan for Next Visit: Continue per POC. Add more lateral hip strengthening. Try calf raises without inversion. Total UNTIMED Code Treatment Minutes: Total TIMED Code Treatment Minutes: 30 Total Treatment Minutes: 30 Author: Yolanda Watson, PT 02/26/2019 09:39 documented in this encounter Plan of Treatment Date Type Specialty Care Team Description 03/05/2019 Office Visit Physical Therapy Yolanda Watson, PT [address] [place] [address] [phone] 03/12/2019 Office Visit Physical Therapy Yolanda Watson, PT [address] [place] [address] [phone] 05/22/2019 Office Visit Internal Medicine Saadia Yip MD [address] [place] [address] Health Maintenance Due Date Last Done Comments [...] ID Effective Dates Phone Address Type Group [facility] xxxxxxxxx 2011-[employer] Blue t Cross/Blue Shield Guarantor Name Account Type Relation to Date of Phone Billing Patient Address [address] Personal/Family [address] (Home) [place], [place] [phone] (Work) documented as of this encounter
[2019-04-17 16:50] LABS: Urine Appearance Clear; Urine Bacteria Absent (Absent); Urine Bilirubin Negative (Negative); Urine Blood Negative (Negative); Urine Color Colorless; Urine Glucose Negative (Negative); Urine Ketones Negative (Negative); Urine Nitrite Negative (Negative); Urine Protein Negative (Negative); Urine Red Blood Cell Absent (Absent); Urine Specific Gravity 1.001 (1.010-1.030); Urine Urobilinogen Negative (Negative); Urine White Blood Cell Absent (Absent)
--- NOTE | 2019-04-17 17:51 | ED ---
GI/ HPI - HPI Summary HPI Summary: 38 year old F with hx kidney stones arriving from urology with complains of LLQ pain, left flank pain, nausea, chills, vaginal itching, mild vaginal odor, increased urinary frequency starting Monday04/14/2019 PM. She thought she pulled groin muscle, took ibuprofen, did some stretches, and elevated her feet that night. Was just seen by Dr. Bonner earlier today. Had renal/bladder ultrasound and urinalysis done. No fever, vaginal bleeding, vaginal discharge, pelvic pain. She states her current symptoms feel similar to the ones she gets when she has kidney stone. Last time she had kidney stones was 2014. She had to have multiple surgeries to remove those. Patient additionally complains of severe pain upon sexual intercourse, ovulation, menstrual cycle. Had ultrasound done with OBGYN which was normal. Symptoms rated 8/10 in severity. Symptoms aggravated by sexual intercourse, ovulation, menstrual cycle. Symptoms alleviated by nothing. Medications reviewed. Allergies reviewed. Adverse reaction to IV contrast. Had to have Benadryl last time she had IV contrast. - History of Current Complaint Chief Complaint: EDFlankPain Time Seen by Provider: 04/17/19 17:44 Stated Complaint: ABD PAIN PER PT Hx Obtained From: Patient Onset/Duration: Started Days Ago - 3, Still Present Timing: Constant Current Severity: Severe Pain Intensity: 8 Associated Signs and Symptoms: Positive: Negative - fever, vaginal bleeding, vaginal discharge, pelvic pain Aggravating Factor(s): [place] - ovulation, menstrual cycle Alleviating Factor(s): Nothing - Allergy/Home Medications Allergies/Adverse Reactions: Allergies Allergy/AdvReac Type Severity Reaction Status Date / Time No Known Allergies Allergy Verified 04/17/19 15:50 Home Medications: Home Medications Naproxen Sodium [Naproxen 550 mg tab] 550 mg PO BID PRN 04/17/19 [History Confirmed 04/17/19] Sertraline* [Zoloft*] 50 mg PO DAILY 04/17/19 [History Confirmed 04/17/19] PMH/Surg Hx/FS Hx/Imm Hx Endocrine/Hematology History: Denies: Hx Anticoagulant Therapy, Hx Diabetes Cardiovascular History: Denies: Hx Hypertension History: Reports: Hx Kidney Stones Psychiatric History: Reports: Hx Depression Denies: Hx Anxiety, Hx Attention Deficit Hyperactivity Disorder, Hx Community Mental Health Tx, Hx Bipolar Disorder, Hx Suicide Attempt, Other Psychiatric Issues/Disorders - Surgical History Surgery Procedure, Year, and Place: PARATHYROID TUMOR REMOVAL. melanoma removed from right pinky toe. lithotripsy - Immunization History Date of Tetanus Vaccine: unknown Infectious Disease History: No Infectious Disease History: Denies: Traveled Outside the [place] in Last 30 Days - Family History Known Family History: Positive: Hypertension, Other - thyroid disease - Social History Alcohol Use: Occasionally Hx Substance Use: No Substance Use Type: Reports: None Hx Tobacco Use: No Smoking Status (MU): Never Smoked Tobacco Review of Systems Negative: Fever Positive: Abdominal Pain - LLQ, Nausea Genitourinary: Negative - vaginal bleeding, vaginal discharge, pelvic pain Positive: frequency, flank pain - L, other - vaginal itching, mild vaginal odor All Other Systems Reviewed And Are Negative: Yes Physical Exam - Summary Physical Exam Summary: Constitutional: Well-developed, Well-nourished, Alert. (-) Distressed Skin: Warm, Dry HENT: Normocephalic; Atraumatic Eyes: Conjunctiva normal Neck: Musculoskeletal ROM normal neck. (-) JVD, (-) Stridor, (-) Nuchal rigidity Cardio: Rhythm regular, rate normal, Heart sounds normal; Intact distal pulses; Radial pulses are 2+ and symmetric. (-) Murmur Pulmonary/Chest wall: Effort normal. (-) Respiratory distress, (-) Wheezes, (-) Rales Abd: Soft, LLQ tenderness and left flank tenderness, (-) Distension, (-) Guarding, (-) Rebound : (kiesha Chang Rn) External Exam: normal labia, no masses, lacerations or abnormal lesions visualized Speculum Exam: Cervical os closed, mild inflammation, scant discharge, no blood in vault Bimanual Exam: no CMT, no adnexal tenderness bilaterally Musculoskeletal: (-) Edema Lymph: (-) Cervical adenopathy Neuro: Alert, Oriented x3 Psych: Mood and affect Normal Triage Information Reviewed: Yes Vital Signs On Initial Exam: Initial Vitals Temp Pulse Resp BP Pulse Ox 98.3 F 90 18 132/107 98 04/17/19 15:45 04/17/19 15:45 04/17/19 15:45 04/17/19 15:45 04/17/19 15:45 Vital Signs Reviewed: Yes Procedures - Sedation Patient Received Moderate/Deep Sedation with Procedure: No Diagnostics - Vital Signs Vital Signs Temp Pulse Resp BP Pulse Ox 04/17/19 15:45 98.3 F 90 18 132/107 98 - Laboratory Lab Results: Lab Results 04/17/19 Range/Units Unknown Urine Color Colorless Urine Appearance Clear Urine pH 6.0 (5-9) Ur Specific Lopez 1.001 L (1.010-1.030) Urine Protein Negative (Negative) Urine Ketones Negative (Negative) Urine Blood Negative (Negative) Urine Nitrate Negative (Negative) Urine Bilirubin Negative (Negative) Urine Urobilinogen Negative (Negative) Ur Leukocyte Esterase Negative (Negative) Urine WBC (Auto) Absent (Absent) Urine RBC (Auto) Absent (Absent) Urine Bacteria Absent (Absent) Urine Glucose Negative (Negative) Result Diagrams: 04/17/19 17:57 04/17/19 17:57 Lab Statement: Any lab studies that have been ordered have been reviewed, and results considered in the medical decision making process. - CT ABD/PEL CT Interpretation Completed By: Radiologist - IMPRESSION: No CT findings to correlate with patient's symptomatology. Specifically no appendicitis. ED physician has reviewed this imaging report. Re-Evaluation - Re-Evaluation First Eval Re-Evaluation Time: 20:31 Comment: patient is having hives. no difficulty breathing. will give Solumedrol GIGU Course/Dx - Course Course Of Treatment: 38 y/o F w LLQ abdominal pain. - had normal renal ultrasound, urinalysis at urology office. Lab w for mild leukocytosis. CT scan abdomen does not show any acute pathology. Given patient's persistent pain , pelvic exam done which showed scant discharge, no significant adnexal tenderness. We'll obtain a transvaginal ultrasound to assess for ovarian pathology. Do not suspect torsion as patient has had only intermitttent L sharp pain lasting a second a/w R sided flank cramping as well. GC and chlamydia sent - Diagnoses Provider Diagnoses: LLQ abdominal pain Discharge ED - Sign-Out/Discharge Documenting (check all that apply): Sign-Out Patient Signing out patient TO: Tasha Puentes - pending ultrasound transvaginal and disposition - Discharge Plan Condition: Stable Disposition: HOME Patient Education Materials: Acute Abdominal Pain (ED) Referrals: Saadia Yip MD [Primary Care Provider] - 3 Days Additional Instructions: You were seen in the emergency department for abdominal pain. Your CT scan did not show any abnormalities. Your ultrasound did not show any abnormalities. If any studies were not completed at the time of discharge you will be called with the relevant results. Please follow up with your primary care doctor in next 2-3 days and return to emergency department for worsening pain, fevers, or concerning symptoms. It was a pleasure taking care of you today. - Billing Disposition and Condition Condition: STABLE Disposition: Home - Attestation Statements Document Initiated by Rudy: Yes Documenting Scribe: Elvia West Provider For Whom Rudy is Documenting (Include Credential): Kb Mays MD Scribe Attestation: IElvia, scribed for Kb Mays MD on 04/18/19 at 2101. Scribe Documentation Reviewed: Yes Provider Attestation: The documentation as recorded by the Elvia yee accurately reflects the service I personally performed and the decisions made by me, Kb Mays MD Status of Scribe Document: Viewed
[2019-04-17 18:14] LABS: ABS Basophils 0.1 10^3/ul (0-0.2); ABS Eosinophils 0.1 10^3/ul (0-0.6); ABS Lymphocytes 2.6 10^3/ul (1.0-4.8); ABS Monocytes 0.6 10^3/ul (0-0.8); Eosinophil % 1.1 %; Hematocrit 40 % (35-47); Hemoglobin 13.6 g/dL (12.0-16.0); Lymphocyte % 20.9 %; Mean Corpuscular HGB Conc 34 g/dL (31-36); Mean Corpuscular Hemoglobin 29 pg (27-31); Mean Corpuscular Volume 87 fL (80-97); Mean Platelet Volume 7.8 fL (7.4-10.4); Nucleated Red Blood Cells % 0.1; Platelet Count 355 10^3/uL (150-450); Red Blood Count 4.63 10^6 /uL (3.70-4.87); Red Cell Distribution Width 14 % (10-15); White Blood Count 12.5 10^3/uL (3.5-10.8)
[2019-04-17 18:32] LABS: ALT 18 U/L (7-52); AST 16 U/L (13-39); Albumin 4.5 g/dL (3.2-5.2); Albumin/Globulin Ratio 1.4 (1-3); Alkaline Phosphatase 98 U/L (34-104); Anion Gap 9 mmol/L (2-11); BUN/Creatinine Ratio 14.9 (8-20); Blood Urea Nitrogen 11 mg/dL (6-24); CO2 Carbon Dioxide 27 mmol/L (22-32); Calcium 10.1 mg/dL (8.6-10.3); Chloride 102 mmol/L (101-111); EGFR African American 106.3 (>60); EGFR Non-African American 87.8 (>60); Globulin 3.3 g/dL (2-4); Glucose 92 mg/dL (70-100); Potassium 4.2 mmol/L (3.5-5.0); Sodium 138 mmol/L (135-145); Total Protein 7.8 g/dL (6.4-8.9)
[2019-04-17 18:39] LABS: HCG Pregnancy < 0.60 mIU/mL
[2019-04-17] MEDS ORDERED: Iohexol 300* (CONTRAST) 10 ML SDV IV ONE (18:59)
[2019-04-17] MEDS ORDERED: Ondansetron INJ* 2 MG/ML VIAL IV ONE (19:27)
[2019-04-17] MEDS ORDERED: Morphine 4 MG/ML VIAL (1 ml) 4 MG/ML VIAL IV ONE (19:27)
[2019-04-17] MEDS ORDERED: diPHENhydraMINE IV* 50 MG/ML 1 ml VIAL (BENADRYL) ONE (19:29)
[2019-04-17] MEDS ORDERED: diPHENhydraMINE IV* 50 MG/ML 1 ml VIAL (BENADRYL) IV ONE (19:38)
[2019-04-17] MEDS ORDERED: methylPREDNISolone 125 MG* 2 ML VIAL IV ONE (20:32)
[2019-04-17] MEDS ORDERED: Famotidine TAB* 20 MG PO ONE (20:32)
[2019-04-17] MEDS ORDERED: methylPREDNISolone 125 MG* 2 ML VIAL ONE (20:33)
[2019-04-17] MEDS ORDERED: Famotidine IV* 10 MG/ML 2 ML (20 mg) ONE (20:34)
[2019-04-17] MEDS ORDERED: Ketorolac TAB * 10 MG TAB PO ONE (21:59)
--- NOTE | 2019-04-17 22:45 | ED ---
Progress - Progress Note Progress Note: The patient is a sign-out from Dr. Kb Mays MD, to Dr. Tasha Puentes MD, at change of shift at 2200 on 04/17/19, pending Transvaginal US and disposition. Transvaginal US is negative for any abnormalities. Patient is safe for discharge. - Results/Orders Results/Orders: Transvaginal US Impression: Sonographically normal uterus and ovaries. ED physician has reviewed this report. Re-Evaluation - Re-Evaluation First Eval Re-Evaluation Time: 22:45 Comment: I discussed all results and plan for discharge. Discussed any symptoms warranting return to the ED. Course/Dx - Diagnoses Provider Diagnoses: LLQ abdominal pain Discharge ED - Sign-Out/Discharge Documenting (check all that apply): Patient Departure - discharge, Receiving Sign-Out Receiving patient FROM: Kb Mays - Patient is a sign-out from Dr. Kb Mays MD, at change of shift at 2200 on 04/17/19, pending Transvaginal US and disposition. - Discharge Plan Condition: Stable Disposition: HOME Patient Education Materials: Acute Abdominal Pain (ED) Referrals: Saadia Yip MD [Primary Care Provider] - 3 Days Additional Instructions: You were seen in the emergency department for abdominal pain. Your CT scan did not show any abnormalities. Your ultrasound did not show any abnormalities. If any studies were not completed at the time of discharge you will be called with the relevant results. Please follow up with your primary care doctor in next 2-3 days and return to emergency department for worsening pain, fevers, or concerning symptoms. It was a pleasure taking care of you today. - Billing Disposition and Condition Condition: STABLE Disposition: Home - Attestation Statements Document Initiated by Scribe: Yes Documenting Scribe: Donna Cross Provider For Whom Rudy is Documenting (Include Credential): Tasha Puentes MD Scribe Attestation: I, Donna Cross, scribed for Tasha Puentes MD on 04/17/19 at 2314. Scribe Documentation Reviewed: Yes Provider Attestation: The documentation as recorded by the Donna yee accurately reflects the service I personally performed and the decisions made by me, Tasha Puentes MD Status of Scribe Document: Viewed Procedures - Sedation Patient Received Moderate/Deep Sedation with Procedure: No
[2019-04-17 23:07] VITALS: BP 129/85
[2019-04-18 14:04] LABS: Trichomonas vag NAA Female Negative (Negative)
[2019-04-18 14:14] LABS: Chlamydia trachomatis NAA Negative (Negative); Neisseria gonorrhoeae (GC) NAA Negative (Negative)
== END 2019-04-17 23:05 | disposition home or self-care (01) ==
LOC: ED 15:41
DX: R10.32 Left lower quadrant pain (principal); R11.0 Nausea; R35.0 Frequency of micturition; L29.2 Pruritus vulvae; F32.9 Major depressive disorder, single episode, unspecified; Z87.442 Personal history of urinary calculi
CPT/HCPCS: 36415; 74177; 76830; 80053; 81003; 84702; 85025; 87480; 87491; 87510; 87591; 87661; 96374; 96375; 99283; A9270-GY; J1200; J2270; J2405; J2930; Q9967